=== PATIENT | female | born 1950 | race Two or more races ===

== ENCOUNTER 2016-12-03 13:00 | Emergency (ER) | payer OTHER ==
[~2016-12-03] VITALS: Ht 152.4 cm; Wt 67.1 kg
[2016-12-03 13:36] LABS: Urine RBC None Seen /hpf (0 - 4)
[2016-12-03 13:49] LABS: Urine Bilirubin Negative (Negative); Urine Blood Negative /uL (Negative); Urine Color Colorless (Yellow); Urine Glucose Normal (Normal); Urine Ketone Negative (Negative); Urine Nitrite Negative (Negative); Urine Squamous Epithelial Cell FEW /hpf (<5); Urine Urobilinogen Normal (Negative)
[2016-12-03 14:38] LABS: Albumin 3.7 g/dL (3.4-5.0); Anion Gap 8 (5-15); Blood Urea Nitrogen 12 mg/dL (7-18); Calcium 8.6 mg/dL (8.5-10.1); Carbon Dioxide 24 mmol/L (21-32); Chloride 108 mmol/L (98-107); Glucose 103 mg/dL (74-106); Potassium 4.4 mmol/L (3.5-5.1); Sodium 140 mmol/L (136-145)
[2016-12-03 14:40] LABS: Aspartate Aminotransferase 18 U/L (15-37); BUN/Creatinine Ratio 17.1; GFR African American 107 mL/min; GFR Non-African American 89 mL/min
[2016-12-03 14:42] LABS: Basophils # (auto) 0 uL; Basophils % (auto) 0.4 % (0.0-2.0); CONDITION Y; Eosinophils # (auto) 0 uL; Eosinophils % (auto) 0.3 % (0.0-7.0); Hematocrit 41.7 % (36.0-46.0); Hemoglobin 14.2 g/dL (12.2-16.2); Lymphocytes # (auto) 2.3 uL; Lymphocytes % (auto) 25.4 % (10.0-50.0); Mean Corpuscular Hemoglobin 32.7 pg (28.0-32.0); Mean Corpuscular Volume 96.2 fL (80.0-100.0); Mean Platelet Volume 8.6 fL (7.4-10.4); Monocytes # (auto) 0.7 uL; Monocytes % (auto) 7.4 % (0.0-12.0); Neutrophils % (auto) 66.5 % (37.0-80.0); Platelet Count (auto) 446 10^3/uL (140-450); Red Cell Distribution Width 12.7 % (11.6-16.0)
[2016-12-03 14:45] LABS: Alkaline Phosphatase 103 U/L (45-117); Bilirubin, Total 0.2 mg/dL (0.2-1.0); Total Protein 8.5 g/dL (6.4-8.2)
[2016-12-03] MEDS ORDERED: MECLIZINE HCL 25 MG TAB PO ONE (14:45)
[2016-12-03 15:51] VITALS: BP 152/68
== END 2016-12-03 16:44 | disposition home or self-care (01) ==
LOC: ER 13:00
DX: R42 Dizziness and giddiness (principal)
CPT/HCPCS: 36415; 70450; 71020; 80053; 81001; 84484; 85025; 93005; 99285; J8597

== ENCOUNTER 2021-06-02 10:46 | Emergency (ER) | payer OTHER ==
[~2021-06-02] VITALS: Ht 152.4 cm; Wt 58.1 kg
[~2021-06-02 10:46] MED LIST: ASPI81CH43 PO; CHOL20007 PO
[2021-06-02 11:12] LABS: Urine WBC None Seen /hpf (0 - 5)
[2021-06-02 11:38] LABS: Urine Bacteria NONE SEEN /hpf (None Seen); Urine Blood Negative /uL (Negative); Urine Specific Gravity 1.006 (1.001-1.035)
[2021-06-02 11:48] VITALS: BP 153/55
[2021-06-02] MEDS ORDERED: MELO7.5T9 PO (12:53)
[2021-06-02] MEDS ORDERED: ACETAMINOPHEN 500 MG TAB PO ONE (13:00)
== END 2021-06-02 13:11 | disposition home or self-care (01) ==
LOC: ER 10:46
DX: M16.0 Bilateral primary osteoarthritis of hip (principal); I10 Essential (primary) hypertension; E78.5 Hyperlipidemia, unspecified; Z79.82 Long term (current) use of aspirin; Z79.899 Other long term (current) drug therapy
CPT/HCPCS: 73502; 81001